=== PATIENT | male | born 1975 | race Caucasian/White ===

== ENCOUNTER 2021-01-23 07:32 | Outpatient (REF) | payer BC, SELFPAY ==
[2021-01-23 08:03] LABS: COVID-19 Test Negative (Negative)
== END 2021-01-23 07:33 | disposition home or self-care (01) ==
LOC: HO.LAB 07:32
PROVIDERS: PCP Family Medicine; Visit Provider Internal Medicine
DX: Z20.822 Contact with and (suspected) exposure to COVID-19 (principal)
CPT/HCPCS: 36415; 87635; C9803

== ENCOUNTER 2021-08-29 09:08 | Outpatient (REF) | payer BC, SELFPAY ==
--- NOTE | 2021-08-29 15:47 | MHC.AU.AEV ---
Adult Audiological Evaluation Date of Visit: 08/29/21 Reason for Appointment: Audiological evaluation due to concern for tinnitus. Patient reports bilateral tinnitus that is worse in the right ear. He reports that the tinnitus is a constant, high-frequency tone, though he occasionally has a fluctuation in hearing which he describes similarly to a temporary transient ear noise. He notes that his hearing also seems to be gradually decreasing and he feels he hears better from his left ear. He notes that he often has to lean in or tilt his head to hear better. Patient reports a severe ear infections in his right ear approximately ten years ago that resulted in a tympanic membrane perforation. 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 He notes that he had PE tubes in his ears in childhood (age 8, ). 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 Reduced 200 & 2976-6361 Hz. Analysis: Reduced/Absent emissions suggest cochlear dysfunction. Results are consistent with degree and configuration of hearing loss. Left Ear Results: Present 7066-2816 Hz. Reduced 4214-4224 Hz. Analysis: Reduced/Absent emissions suggest cochlear dysfunction. Results are consistent with degree and configuration of hearing .loss Hearing Evaluation: Transducer(s) Used: Insert Earphones High Frequency Headphones Method: Conventional Audiometry Stimuli Used: Pure Tones Right Ear: Description of Hearing: Normal hearing from 250-3000 Hz, sloping to a mild to moderate sensorineural hearing from 0786-3785 Hz. Left Ear: Description of Hearing: Normal hearing from 250-3000 Hz, sloping to a mild to moderate sensorineural hearing from 6494-9449 Hz. High Frequency Audiometry: High Frequency Audiometry: Performed high-frequency audiometry from 11069-47,000 Hz, as patient reports he hears high-frequency sounds from the left ear and high-frequency tinnitus of a greater intensity in the right ear. Results for high-frequency audiometry were symmetrical and does not explain his perceived asymmetry. Speech Recognition Threshold (SRT): Method Used: Monitored Live Voice Stimuli Used: Spondee Words Right Ear: 15 dBHL Left Ear: 15 dBHL Word Discrimination: Method: Recorded Lists Word Lists Used: NU-6 Right Ear: 100% at 55 dBHL Left Ear: 100% at 55 dBHL QuickSIN: 2 dB SNR loss when presented binaurally at 55 dBHL, indicating normal [id number]-[id number] understanding abilities. Interpretation of Results: Today's evaluation indicates a symmetrical high-frequency sensorineural hearing loss bilaterally. Otoacoustic emissions, tympanometry, speech understanding, and high-frequency audiometry are also symmetrical and consistent with all other findings today. It is possible that his perceived asymmetry is related to the perforated tympanic membrane he suffered in the right-ear ten years ago. Recommendations: Audiological re-evaluation in one year or sooner if changes are noted. Patient is considered a borderline candidate for amplification, but deferred hearing aids at this time. Diagnosis: Primary Diagnosis: H90.3 Bilateral Sensorineural Hearing Loss Secondary Diagnosis: H93.13 Tinnitus, Bilateral Services Performed: Comprehensive Audiological Evaluation (CPT 24525) Diagnostic Otoacoustic Emissions (CPT 22654, 26+TC) Tympanometry (CPT 46710) Unlisted Otorhinolaryngological Service or Procedure (CPT 22313) Signature: Provider: Jazmin Dodson, [facility]
== END 2021-08-29 09:09 | disposition home or self-care (01) ==
LOC: HO.SH 09:08
PROVIDERS: Visit Provider Physician Assistant
DX: Z01.118 Encounter for examination of ears and hearing with other abnormal findings (principal); H90.3 Sensorineural hearing loss, bilateral; H93.13 Tinnitus, bilateral
CPT/HCPCS: 92557; 92567; 92588; 92700